=== PATIENT | female | born 1995 | race Caucasian/White ===

== ENCOUNTER 2016-08-01 21:44 | Emergency (ER) | payer OTHER ==
[~2016-08-01] VITALS: Ht 165.1 cm; Wt 73.0 kg
[~2016-08-01 21:44] MED LIST: LIDO2GEL12 TOP
[2016-08-01 21:46] VITALS: BP 125/72; PULSE 81; RESP 16; TEMP 97.9; O2SAT 99
[2016-08-01 23:34] VITALS: BP 121/79; PULSE 80; RESP 16; O2SAT 100
[2016-08-02 00:22] LABS: BACTERIA, URINE RARE /hpf; BLOOD, URINE TRACE (NEG); COMMENT (UR) CULT NOT INDICATED; CULTURE IF INDICATED CULT NOT INDICATED; GLUCOSE,URINE NEG (NEG); HYALINE CAST, URINE 1 /lpf (RARE); KETONE, URINE NEG (NEG); MUCUS URINE FEW /lpf (OCC); NITRITE,URINE NEG (NEG); PH, URINE 5.5 (5.0-8.5); SQUAMOUS EPITHELIAL CELL URINE 3 /hpf (0-5); URINE COLOR YELLOW (YELLW/STRAW)
[2016-08-02] MEDS ORDERED: CEPH-460 PO (00:47)
--- NOTE | 2016-08-02 00:49 | PD ---
HPI Chief Complaint: Dizziness Time Seen by Provider: 23:52 Travel History International Travel<30 days: No Contact w/Intl Traveler<30days: No Traveled to known affect area: No History of Present Illness HPI 31-year-old female arrives complaining of a vague sensation of lightheadedness and a generalized sensation of feeling hot. The symptoms came and went having lasted a couple minutes while she was working as a [employer]. The patient left work. Here she describes a fairly vague area of pain in the right flank that radiates to the right groin. She's had multiple episodes of kidney stones however they felt somewhat different typically quite a bit more painful. She's had no fever. She's had no vomiting or nausea. No palpitation, shortness of breath or chest pain has come to pass. The patient has had no diaphoresis. PFSH Past Medical History Diminished Hearing: No Kidney Stones: Yes Immunizations Current: Yes Tetanus Vaccination: < 5 Years Influenza Vaccination: No ?: Not LMP: 07/24/16 : 0 Past Surgical History Surgical History: No Previous Surgery Social History Alcohol Use: Yes (rare) Tobacco Use: No Substance Use: No Allergies-Medications (Allergen,Severity, Reaction): Coded Allergies: Sulfa (Verified Allergy, Intermediate, RASH, 08/01/16) Reported Meds & Prescriptions Reported Meds & Active Scripts Active Keflex (Cephalexin) 500 Mg Cap 500 Mg PO Q12H 7 Days Lidocaine Hcl Jelly (Lidocaine HCl) 2 % Gel 1 Applic TOP Q8HR Apply sparingly to the outside of the vagina as needed for irritation. Review of Systems Except as stated in HPI: all other systems reviewed are Neg Physical Exam Narrative GENERAL: 21-year-old female, well-nourished well-developed pleasant SKIN: Warm and dry. HEAD: Atraumatic. Normocephalic. EYES: Pupils equal and round. No scleral icterus. No injection or drainage. ENT: No nasal bleeding or discharge. Mucous membranes pink and moist. NECK: Trachea midline. No JVD. CARDIOVASCULAR: Regular rate and rhythm. No murmur appreciated. RESPIRATORY: No accessory muscle use. Clear to auscultation. Breath sounds equal bilaterally. GASTROINTESTINAL: Soft. No tenderness at McBurney's point. No significant flank tenderness. Negative Menjivar sign. MUSCULOSKELETAL: No obvious deformities. No clubbing. No cyanosis. No edema. NEUROLOGICAL: Awake and alert. No obvious cranial nerve deficits. Motor grossly within normal limits. Normal speech. PSYCHIATRIC: Appropriate mood and affect; insight and judgment normal. Data Data Last Documented VS Vital Signs Date Time Temp Pulse Resp B/P Pulse Ox O2 Delivery O2 Flow Rate FiO2 08/01/16 23:34 80 16 121/79 100 Room Air 08/01/16 21:46 97.9 VS reviewed Orders Urinalysis - C+S If Indicated (08/01/16 23:52) Ed Urine Pregnancytest Poc (08/01/16 23:52) Labs Laboratory Tests Test 08/01/16 23:57 Urine Color YELLOW Urine Turbidity CLEAR Urine pH 5.5 Urine Specific [place] 1.022 Urine Protein NEG mg/dL Urine Glucose (UA) NEG mg/dL Urine Ketones NEG mg/dL Urine Occult Blood TRACE Urine Nitrite NEG Urine Bilirubin NEG Urine Urobilinogen LESS THAN 2.0 MG/DL Urine Leukocyte Esterase MOD Urine RBC 1 /hpf Urine WBC 7 /hpf Urine Squamous Epithelial 3 /hpf Cells Urine Bacteria RARE /hpf Urine Hyaline Casts 1 /lpf Urine Mucus FEW /lpf Microscopic Urinalysis Comment CULT NOT INDICATED MDM Medical Decision Making Medical Screen Exam Complete: Yes Emergency Medical Condition: Yes Medical Record Reviewed: Yes Differential Diagnosis UTI, renal stone, anxiety, IUP Narrative Course Urinalysis reveals a UTI Plantar is negative The patient will go home with a Keflex prescription. Return precautions discussed. Diagnosis Primary Impression: Cystitis Referrals: Primary Care Physician 2 days Additional Instructions: You have a choice when it comes to health care, and we are glad that you chose [facility]. Hopefully, we have met your expectations on today's visit. You are welcome to return to [facility] at any time, as we are committed to meeting the health care needs of our community. Med/Other Pt SpecificInfo: Prescription(s) given Scripts Cephalexin (Keflex)500 Mg [id number] Mg PO Q12H 7 Days Ref 0 Prov:Artis Souza MD 08/02/16 Disposition: 01 DISCHARGE HOME Condition: Stable Artis Souza MD Aug 02, 2016 00:49
== END 2016-08-02 01:04 | disposition home or self-care (01) ==
LOC: NEPE 21:44
DX: N30.90 Cystitis, unspecified without hematuria (principal)
CPT/HCPCS: 81001; 84703; 99284

== ENCOUNTER 2018-01-02 13:33 | Emergency (ER) | payer OTHER ==
[~2018-01-02 13:33] MED LIST changes: +CEPH-460 PO
[2018-01-02 13:47] VITALS: BP 130/71; PULSE 94; RESP 16; TEMP 97.6; O2SAT 99
[2018-01-02] MEDS ORDERED: DOXY100C PO (16:13)
--- NOTE | 2018-01-02 16:13 | PD ---
HPI Chief Complaint: Skin Problem Time Seen by Provider: 15:49 Travel History International Travel<30 days: No Contact w/Intl Traveler<30days: No Traveled to known affect area: No History of Present Illness HPI Patient is a 22-year-old female who comes in complaining of a painful lesion to her right chin. She says it has been there since . She went to [facility] on Wednesday and was given a prescription for Keflex. She says it is not improving. She says she has pain around the area and into her jaw. She says she thinks she may have had a fever last night, but did not take her temperature. She has been taking ibuprofen, which helps with her symptoms. She has not noticed any drainage to the area. Severity is mild to moderate. PFSH Past Medical History Diminished Hearing: No Kidney Stones: Yes Immunizations Current: Yes ?: Unknown : 0 Social History Alcohol Use: Yes (rare) Tobacco Use: No Substance Use: No Allergies-Medications (Allergen,Severity, Reaction): Coded Allergies: Sulfa (Sulfonamide Antibiotics) (Unverified Allergy, Intermediate, RASH, ) Reported Meds & Prescriptions Reported Meds & Active Scripts Active Keflex (Cephalexin) 500 Mg Cap 500 Mg PO Q12H 7 Days Lidocaine Hcl Jelly (Lidocaine HCl) 2 % Gel 1 Applic TOP Q8HR Apply sparingly to the outside of the vagina as needed for irritation. Review of Systems General / Constitutional: No: Chills HENT: No: Headaches, Lightheadedness Cardiovascular: No: Chest Pain or Discomfort Respiratory: No: Shortness of Breath Gastrointestinal: No: Nausea, Vomiting Musculoskeletal: No: Pain Skin: Positive Lesions Neurologic: No: Weakness, Dizziness Physical Exam Narrative GENERAL: Awake and alert, no acute distress. SKIN: Focused skin assessment warm/dry. 2 cm area of erythema and induration. There is no fluctuance or drainage. HEAD: Atraumatic. Normocephalic. EYES: Pupils equal and round. No scleral icterus. ENT: Mucous membranes pink and moist. CARDIOVASCULAR: Regular rate and rhythm. No murmur appreciated. RESPIRATORY: No accessory muscle use. Clear to auscultation. Breath sounds equal bilaterally. MUSCULOSKELETAL: No obvious deformities. No clubbing. No cyanosis. No edema. NEUROLOGICAL: Awake and alert. No obvious cranial nerve deficits. Motor grossly within normal limits. Normal speech. Data Data Last Documented VS Vital Signs Date Time Temp Pulse Resp B/P (MAP) Pulse Ox O2 Delivery O2 Flow Rate FiO2 01/02/18 13:47 97.6 94 16 130/71 (90) 99 MDM Medical Decision Making Medical Screen Exam Complete: Yes Emergency Medical Condition: Yes Medical Record Reviewed: Yes Differential Diagnosis Abscess versus cellulitis versus folliculitis Narrative Course Patient is a 22-year-old female who complains of a lesion to the right chin. Exam shows a 2 cm area of erythema and induration. There is no fluctuance or drainable fluid at this time. Patient will be switched from Keflex to doxycycline. She is advised to continue to apply warm compresses. Advised return anytime for any worsening symptoms. Diagnosis Primary Impression: Abscess Patient Instructions: Abscess (ED), General Instructions Additional Instructions: Take all of your antibiotics. Apply warm compresses to the area. Return anytime for any worsening symptoms. Scripts Doxycycline Hyclate (Doxycycline Hyclate) 100 Mg Cap 100 MG PO BID for Infection, #20 CAP 0 Refills Prov: Kiana Walsh MD 01/02/18 Disposition: 01 DISCHARGE HOME Condition: Stable Kiana Walsh MD Jan 02, 2018 16:13
[2018-01-02 17:42] VITALS: BP 128/70
== END 2018-01-02 17:43 | disposition home or self-care (01) ==
LOC: NEPD 13:33
DX: L02.01 Cutaneous abscess of face (principal); Z87.442 Personal history of urinary calculi
CPT/HCPCS: 84703; 99283